=== PATIENT | male | born 1945 | race African-American/Black ===

== ENCOUNTER → 2017-01-16 | Outpatient (CLI) | payer OTHER | END | disposition home or self-care (01) | LOC: SPEC 07:15 | DX: I65.23 Occlusion and stenosis of bilateral carotid arteries (principal); I73.9 Peripheral vascular disease, unspecified ==

== ENCOUNTER → 2017-01-21 | Outpatient (CLI) | payer OTHER ==
[2017-01-21 10:03] LABS: CREATININE 1.8 mg/dL (0.7-1.3)
== END ==
LOC: CAT 08:34
PROVIDERS: Radiology Vascular & Interventional Radiology
DX: I73.9 Peripheral vascular disease, unspecified (principal); K46.9 Unspecified abdominal hernia without obstruction or gangrene; N43.3 Hydrocele, unspecified